=== PATIENT | male | born 1985 | race Caucasian/White ===

== ENCOUNTER 2019-11-05 16:30 | Emergency (ER) | payer MEDICAID ==
[~2019-11-05] VITALS: Ht 182.9 cm; Wt 113.4 kg
[2019-11-05 16:52] VITALS: Ht 182.9 cm; Wt 113.4 kg
[2019-11-05 17:16] VITALS: BP 165/144
[2019-11-05 17:30] LABS: BASOPHIL % 0.5 % (0-2); PLATELET COUNT 253 x10^3mcL (130-400); RED CELL DISTRIBUTION WIDTH 14.4 % (11.5-14.5)
[2019-11-05 18:03] LABS: CARBON DIOXIDE 19.9 mmol/L (21-32); CHLORIDE SERUM 101 mmol/L (98-107); CREATININE SERUM 1.2 mg/dL (0.7-1.3); GFR1 > 60 mL/min; GLUCOSE SERUM 179 mg/dL (74-106); POTASSIUM SERUM 3.7 mmol/L (3.5-5.1); SODIUM SERUM 138 mmol/L (136-145)
[2019-11-05 18:10] LABS: AMPHETAMINE QUAL UR NONE DETECTED (See below)
[2019-11-05 18:16] LABS: ALBUMIN 3.9 g/dL (3.4-5.0); ALKALINE PHOSPHATASE 132 U/L (46-116); ALT/SGPT 142 U/L (16-63); AST/SGOT 43 U/L (15-37); BILIRUBIN TOTAL 0.3 mg/dL (0.20-1.00); T4(THYROXINE) 7.6 ug/dL (4.7-13.3); TOTAL PROTEIN, SERUM 7.7 g/dL (6.4-8.2)
[2019-11-05 20:00] VITALS: BP 134/58
[2019-11-05 22:00] VITALS: BP 137/66
[2019-11-05 22:11] VITALS: BP 131/70
== END 2019-11-05 23:50 | disposition short-term general hospital (02) ==
LOC: ED 16:30
PROVIDERS: Emergency Medicine
DX: G40.909 Epilepsy, unspecified, not intractable, without status epilepticus (principal); S00.512A Abrasion of oral cavity, initial encounter; R94.31 Abnormal electrocardiogram [ECG] [EKG]; X58.XXXA Exposure to other specified factors, initial encounter; Y93.89 Activity, other specified; Y92.89 Other specified places as the place of occurrence of the external cause; Y99.8 Other external cause status
CPT/HCPCS: 36600; 82962; J1953; J2060; J2250; J3010; J7030; Q0092